=== PATIENT | female | born 1990 | race Caucasian/White ===

== ENCOUNTER 2022-12-21 12:11 | Emergency (ER) | payer SELFPAY ==
[2022-12-21 13:03] LABS: #Eosinphils 0.4 10x3/uL (0.0-0.5); #Monocytes 0.5 10x3/uL (0.0-1.1); #Neutrophils 4.4 10x3/uL (1.5-8.4); %Basophils 0.4 % (0.0-2.0); %Eosinophils 5.4 % (0.0-6.0); %Lymphocytes 24.8 % (18.0-47.0); %Monocytes 7.3 % (0.0-10.0); Hemoglobin 11.9 g/dL (12.0-15.5); Mean Corpuscular HGB CONC 32.5 g/dL (32.0-36.0); Mean Corpuscular Hemoglobin 28.5 pg (27.0-33.0); Mean Corpuscular Volume 87.8 fl (81.6-98.3); Mean Platelet Volume 10.7 fl (7.4-10.4); Platelet Count 271 10x3/uL (150-450); RBC Distribution Width 13.9 % (11.5-14.5); Red Blood Cell (RBC) Count 4.17 10x6/uL (3.90-5.03)
[2022-12-21 13:19] LABS: ALT (SGPT) 14 U/L (8-55); AST (SGOT) 14 U/L (5-34); Albumin 3.8 g/dL (3.5-5.0); Alkaline Phosphatase 62 U/L (40-110); Anion Gap 8 mmol/L (10-20); BUN (Urea Nitrogen) 9 mg/dL (7.0-18.7); Bilirubin, Total 0.5 mg/dL (0.2-1.2); Calc. Creatinine Clearance 0 mL/min (70-130); Carbon Dioxide 25 mmol/L (22-29); Chloride 109 mmol/L (98-107); Estimated GFR 108; Globulin 3.2 g/dL (2.4-3.5); Glucose 89 mg/dL (70-105); Potassium 4.3 mmol/L (3.5-5.1); Sodium 138 mmol/L (136-145)
== END 2022-12-21 15:23 | disposition home or self-care (01) ==
LOC: EDBD → CSHERS 12:11
DX: O20.9 Hemorrhage in early pregnancy, unspecified (principal); Z3A.08 8 weeks gestation of pregnancy
CPT/HCPCS: 36415; 76856; 80053; 84702; 85025; 86900; 86901

== ENCOUNTER 2022-12-23 09:34 | Emergency (ER) | payer SELFPAY | END 2022-12-23 12:00 | disposition home or self-care (01) | LOC: CSHERS 09:34 | DX: O02.81 Inappropriate change in quantitative human chorionic gonadotropin (hCG) in early pregnancy (principal); Z3A.00 Weeks of gestation of pregnancy not specified | CPT/HCPCS: 36415; 76856; 84702 ==

== ENCOUNTER 2023-07-02 16:35 | Day surgery (SDC) | payer SELFPAY ==
[2023-07-02] MEDS ORDERED: hydrALAZINE 20 MG/ML VIAL SLOW IVP PRN (17:04)
[2023-07-02 17:45] LABS: Bilirubin Neg (Negative); Blood, Urine 10 (Negative); Clarity Clear (Clear); Glucose, Urine (Dipstick) Normal (Negative); Ketone, Urine Negative (Negative); Leukocyte 25 (Negative); Nitrite Negative (Negative); Protein, Urine (Dipstick) Negative (Neg-Trace); Urobilinogen Normal mg/dL (Less than 2)
[2023-07-02] MEDS ORDERED: Lactated Ringer's 1,000 ML IV SCH (18:00)
[2023-07-02 18:06] LABS: Bacteria/HPF 2+ HPF (None Seen); CAUTI Indications for Culture Pregnancy; RBC/HPF 0-3 HPF (0-3); Squamous Epithelial 0-3 HPF (0-3)
[2023-07-02 18:08] LABS: Urine Culture Reflex Yes Yes
[2023-07-02 18:22] VITALS: BMI 33.3
[2023-07-02] MEDS ORDERED: fentaNYL 50 mcg/mL 1 mL Vial SLOW IVP SCH (18:45)
[2023-07-02] MEDS ORDERED: Nitrofurantoin Monohyd/M-Cryst 100 MG CAP PO SCH (21:00)
== END 2023-07-02 20:50 | disposition home or self-care (01) ==
LOC: CSHLD/OP 16:35
PROVIDERS: ATTEND Obstetrics & Gynecology
DX: O99.891 Other specified diseases and conditions complicating pregnancy (principal); O09.33 Supervision of pregnancy with insufficient antenatal care, third trimester; O09.43 Supervision of pregnancy with grand multiparity, third trimester; O99.820 Streptococcus B carrier state complicating pregnancy; R10.2 Pelvic and perineal pain; Z98.84 Bariatric surgery status; Z98.890 Other specified postprocedural states; Z3A.32 32 weeks gestation of pregnancy
CPT/HCPCS: 81001; 87086

== ENCOUNTER 2023-07-17 13:05 | Day surgery (SDC) | payer MEDICAID, SELFPAY ==
[2023-07-17 13:32] VITALS: BMI 33.2
[2023-07-17] MEDS ORDERED: Lactated Ringer's 1,000 ML IV SCH (14:30)
[2023-07-17 15:00] LABS: Bilirubin Neg (Negative); Blood, Urine Negative (Negative); Clarity Clear (Clear); Glucose, Urine (Dipstick) Normal (Negative); Ketone, Urine Negative (Negative); Leukocyte Negative (Negative); Nitrite Negative (Negative); Protein, Urine (Dipstick) Negative (Neg-Trace); Specific Gravity, Urine 1.015 (1.005-1.030); Urobilinogen Normal mg/dL (Less than 2)
== END 2023-07-17 18:35 | disposition home or self-care (01) ==
LOC: CSHLD/OP 13:05
PROVIDERS: ATTEND Obstetrics & Gynecology
DX: O23.43 Unspecified infection of urinary tract in pregnancy, third trimester (principal); N39.0 Urinary tract infection, site not specified; A74.9 Chlamydial infection, unspecified; O47.03 False labor before 37 completed weeks of gestation, third trimester; O34.211 Maternal care for low transverse scar from previous cesarean delivery; O98.013 Tuberculosis complicating pregnancy, third trimester; A15.0 Tuberculosis of lung; Z98.890 Other specified postprocedural states; Z98.84 Bariatric surgery status; Z79.899 Other long term (current) drug therapy; Z3A.34 34 weeks gestation of pregnancy
CPT/HCPCS: 81003; 87086; 87480; 87510; 87660; 96360; 96365; 99283

== ENCOUNTER 2023-08-10 11:43 | Inpatient (IN) | payer MEDICAID ==
[2023-08-10] MEDS ORDERED: Misoprostol 200 MCG TAB PR PRN (12:44)
[2023-08-10] MEDS ORDERED: Ondansetron PF 4 MG/2 ML Vial IVP PRN ×2 (12:44→18:36)
[2023-08-10] MEDS ORDERED: Promethazine HCl 25 MG/ML VIAL IM PRN (12:44)
[2023-08-10] MEDS ORDERED: Tranexamic Acid 1,000 MG/10 ML VIAL IVP PRN (12:44)
[2023-08-10] MEDS ORDERED: Ibuprofen 800 MG TAB PO PRN (12:44)
[2023-08-10] MEDS ORDERED: hydrALAZINE 20 MG/ML VIAL SLOW IVP PRN ×2 (12:44→18:36)
[2023-08-10] MEDS ORDERED: Methylergonovine 0.2 MG/ML VIAL IM PRN ×2 (12:44→18:36)
[2023-08-10] MEDS ORDERED: Lidocaine 1% (PF) 30 ML VIAL SC PRN (12:44)
[2023-08-10] MEDS ORDERED: Docusate 100 MG CAP PO PRN (12:44)
[2023-08-10] MEDS ORDERED: Acetaminophen 500 MG TAB PO PRN (12:44)
[2023-08-10] MEDS ORDERED: Diphenoxylate HCl/Atropine Tablet PO PRN (12:44)
[2023-08-10] MEDS ORDERED: fentaNYL 50 mcg/mL 1 mL Vial SLOW IVP PRN (12:44)
[2023-08-10] MEDS ORDERED: Carboprost 250 MCG/ML AMP IM PRN (12:44)
[2023-08-10] MEDS ORDERED: Oxytocin 30 units/NS 500 ML 500 ML IV SCH ×3 (12:45→18:45)
[2023-08-10] MEDS ORDERED: Misoprostol 100 MCG TAB VAG SCH (12:45)
[2023-08-10] MEDS ORDERED: Lactated Ringer's 1,000 ML IV SCH (12:45)
[2023-08-10 13:53] VITALS: BMI 35.2
[2023-08-10 14:35] LABS: Hematocrit 39.7 % (34.9-44.5); Hemoglobin 13.5 g/dL (12.0-15.5); Mean Corpuscular Hemoglobin 30.9 pg (27.0-33.0); Mean Corpuscular Volume 90.8 fl (81.6-98.3); Mean Platelet Volume 11.4 fl (7.4-10.4); Platelet Count 236 10x3/uL (150-450); RBC Distribution Width 13.8 % (11.5-14.5); Red Blood Cell (RBC) Count 4.37 10x6/uL (3.90-5.03); White Blood Cell (WBC) Count 10.3 10x3/uL (3.5-10.5)
[2023-08-10 15:02] LABS: HBSAg Index 0.23 S/CO (0-0.99); Hep B Surf Ag - L&D Non-Reactive S/CO (NonReactive)
[2023-08-10 15:34] LABS: Syphilis Antibody Nonreactive (Nonreactive); Syphilis Antibody Index 0.09 S/CO (<1.00 Non-Reactive)
[2023-08-10] MEDS: Misoprostol 200 MCG TAB VAG PRN (18:35)
[2023-08-10] MEDS: Oxytocin 30 units/NS 500 ML 500 ML IV SCH (18:35)
[2023-08-10] MEDS ORDERED: Boostrix 0.5 ML (Tdap) VIAL (>/=7 yrs of age) IM ONE (18:36)
[2023-08-10] MEDS ORDERED: Preparation H Ointment 28 GM TUBE PR PRN (18:36)
[2023-08-10] MEDS ORDERED: Milk Of Magnesia 30 ML UDCUP PO PRN (18:36)
[2023-08-10] MEDS ORDERED: Lanolin Ointment 7 GM TUBE TOP PRN (18:36)
[2023-08-10] MEDS ORDERED: Bisacodyl 10 MG SUPP PR PRN (18:36)
[2023-08-10] MEDS ORDERED: Acetaminophen 500 MG TAB PO SCH (19:00)
[2023-08-10] MEDS ORDERED: HYDROcodone/Acetaminophen 5/325 mg Tablet PO PRN (19:17)
[2023-08-10] MEDS ORDERED: Cyclobenzaprine 10 MG TAB PO PRN (19:17)
[2023-08-10] MEDS ORDERED: Ibuprofen 800 MG TAB PO SCH (22:00)
[2023-08-10] MEDS: Acetaminophen 500 MG TAB PO SCH (22:04)
[2023-08-10] MEDS: Docusate 100 MG CAP PO SCH (22:04)
[2023-08-11] MEDS: Acetaminophen 500 MG TAB PO SCH (02:13)
[2023-08-11 05:28] LABS: Hematocrit 31.6 % (34.9-44.5); Hemoglobin 10.4 g/dL (12.0-15.5)
[2023-08-11] MEDS: Prenatal Vitamin 1 TAB PO SCH (07:59)
[2023-08-11] MEDS: Ferrous Sulfate 325 MG TAB PO SCH (08:01)
[2023-08-11 20:59] VITALS: TEMP 98.4
[2023-08-11 21:00] VITALS: BP 124/68
== END 2023-08-11 22:50 | disposition home or self-care (01) | DRG 807 ==
LOC: CSHLD/OP 11:43 → CSHLD 12:40 → CSHPED 21:00
PROVIDERS: ADMIT Family Medicine; ATTEND Family Medicine
PROC: 10E0XZZ Delivery of Products of Conception, External Approach (ICD-10-PCS; principal; 2023-08-10)
PROC: 10907ZC Drainage of Amniotic Fluid, Therapeutic from Products of Conception, Via Natural or Artificial Opening (ICD-10-PCS; 2023-08-10)
DX: O36.8130 Decreased fetal movements, third trimester, not applicable or unspecified (principal); Z37.0 Single live birth; O76 Abnormality in fetal heart rate and rhythm complicating labor and delivery; Z3A.38 38 weeks gestation of pregnancy; O09.43 Supervision of pregnancy with grand multiparity, third trimester; Z90.49 Acquired absence of other specified parts of digestive tract; Z98.890 Other specified postprocedural states; Z79.899 Other long term (current) drug therapy
CPT/HCPCS: 36415; 85014; 85018; 85027; 86780; 86850; 86900; 86901; 87340; 99285; J2590

== ENCOUNTER 2024-04-21 11:57 | Emergency (ER) | payer MEDICAID | END 2024-04-21 13:41 | disposition home or self-care (01) | LOC: CSHERS 11:57 | DX: K08.89 Other specified disorders of teeth and supporting structures (principal); Z55.0 Illiteracy and low-level literacy | CPT/HCPCS: 99282 ==

== ENCOUNTER 2024-07-23 10:04 | Emergency (ER) | payer MEDICAID ==
[2024-07-23 11:00] LABS: #Basophils Less than 0.03 10x3/uL (0.0-0.2); #Monocytes 0.39 10x3/uL (0.0-1.1); #Neutrophils 4.34 10x3/uL (1.5-8.4); %Basophils 0.3 % (0.0-2.0); %Eosinophils 1.5 % (0.0-6.0); %Lymphocytes 25.4 % (18.0-47.0); %Neutrophils 66.5 % (40.0-75.0); Hematocrit 36.1 % (34.9-44.5); Hemoglobin 11.4 g/dL (12.0-15.5); Mean Corpuscular HGB CONC 31.6 g/dL (32.0-36.0); Mean Corpuscular Hemoglobin 26.8 pg (27.0-33.0); Mean Corpuscular Volume 84.7 fL (81.6-98.3); Mean Platelet Volume 10.7 fL (7.4-10.4); Platelet Count 235 10x3/uL (150-450); RBC Distribution Width 14.7 % (11.5-14.5); Red Blood Cell (RBC) Count 4.26 10x6/uL (3.90-5.03); White Blood Cell (WBC) Count 6.53 10x3/uL (3.5-10.5)
[2024-07-23 11:24] LABS: Alkaline Phosphatase 62 U/L (40-110); Anion Gap 11 mmol/L (10-20); BUN (Urea Nitrogen) 7 mg/dL (7.0-18.7); Bilirubin, Total 0.5 mg/dL (0.3-1.2); Calc. Creatinine Clearance 0 mL/min (70-130); Carbon Dioxide 21 mmol/L (22-29); Chloride 108 mmol/L (98-107); Estimated GFR 119; Globulin 4.2 g/dL (2.4-3.5); Glucose 82 mg/dL (70-105); Potassium 3.9 mmol/L (3.5-5.1); Protein, Total 8.2 g/dL (6.0-8.3); Sodium 136 mmol/L (136-145)
[2024-07-23 11:25] LABS: ALT (SGPT) 8 U/L (Less than 34); AST (SGOT) 49 U/L (11-34)
[2024-07-23 12:22] LABS: Bilirubin Neg (Negative); Blood, Urine Negative (Negative); Clarity Clear (Clear); Glucose, Urine (Dipstick) Normal (Negative); Ketone, Urine Negative (Negative); Leukocyte Negative (Negative); Nitrite Negative (Negative); Protein, Urine (Dipstick) Negative (Neg-Trace); Specific Gravity, Urine 1.005 (1.005-1.030); Urobilinogen Normal mg/dL (Less than 2); pH, Urine 6.5 (5.0-9.0)
[2024-07-23 12:34] LABS: Bacteria/HPF None Seen HPF (None Seen); CAUTI Indications for Culture Pregnancy; RBC/HPF None Seen HPF (0-3); Squamous Epithelial 0-3 HPF (0-3); WBC/HPF None Seen HPF (0-3)
[2024-07-23 12:36] LABS: Urine Culture Reflex Yes Yes
== END 2024-07-23 12:46 | disposition home or self-care (01) ==
LOC: CSHERS 10:04
DX: O26.851 Spotting complicating pregnancy, first trimester (principal); Z3A.01 Less than 8 weeks gestation of pregnancy
CPT/HCPCS: 36415; 76801; 80053; 81001; 84702; 85025; 86850; 86900; 86901; 87086

== ENCOUNTER 2025-02-15 10:13 | Inpatient (IN) | payer MEDICAID, OTHER ==
[2025-02-15] MEDS ORDERED: Diphenoxylate HCl/Atropine Tablet PO PRN ×2 (10:58)
[2025-02-15] MEDS ORDERED: Lidocaine 1% (PF) 30 ML VIAL SC PRN (10:58)
[2025-02-15] MEDS ORDERED: Carboprost 250 MCG/ML AMP IM PRN (10:58)
[2025-02-15] MEDS ORDERED: Tranexamic Acid 1,000 MG/10 ML VIAL IVP PRN (10:58)
[2025-02-15] MEDS ORDERED: Methylergonovine 0.2 MG/ML VIAL IM PRN (10:58)
[2025-02-15] MEDS ORDERED: hydrALAZINE 20 MG/ML VIAL SLOW IVP PRN ×2 (10:58→13:32)
[2025-02-15] MEDS ORDERED: Ibuprofen 800 MG TAB PO PRN (10:58)
[2025-02-15] MEDS ORDERED: Ondansetron PF 4 MG/2 ML Vial IVP PRN ×2 (10:58→13:32)
[2025-02-15] MEDS ORDERED: Oxytocin 30 units/NS 500 ML 500 ML IV SCH ×2 (11:00)
[2025-02-15 11:13] LABS: Hematocrit 32.0 % (34.9-44.5); Hemoglobin 9.6 g/dL (12.0-15.5); Mean Corpuscular Hemoglobin 23.8 pg (27.0-33.0); Mean Corpuscular Volume 79.4 fL (81.6-98.3); Platelet Count 231 10x3/uL (150-450); Red Blood Cell (RBC) Count 4.03 10x6/uL (3.90-5.03); White Blood Cell (WBC) Count 7.69 10x3/uL (3.5-10.5)
[2025-02-15 11:42] LABS: Syphilis Antibody Index 0.12 S/CO (<1.00 Non-Reactive)
[2025-02-15 11:45] LABS: Hep B Surf Ag - L&D Non-Reactive S/CO (NonReactive)
[2025-02-15] MEDS ORDERED: Lanolin Ointment 7 GM TUBE TOP PRN (13:32)
[2025-02-15] MEDS ORDERED: diphenhydrAMINE 25 MG CAP PO PRN (13:32)
[2025-02-15] MEDS ORDERED: Milk Of Magnesia 30 ML UDCUP PO PRN (13:32)
[2025-02-15] MEDS ORDERED: Preparation H Ointment 28 GM TUBE PR PRN (13:32)
[2025-02-15] MEDS ORDERED: Bisacodyl 10 MG SUPP PR PRN (13:32)
[2025-02-15] MEDS ORDERED: Ibuprofen 800 MG TAB PO SCH (14:00)
[2025-02-15] MEDS: Acetaminophen 500 MG TAB PO PRN (15:30)
[2025-02-15] MEDS: Benzocaine-Menthol 82.5 ML CAN TOP PRN (15:32)
[2025-02-15] MEDS: Ferrous Sulfate 325 MG TAB PO SCH (17:14)
[2025-02-16] MEDS: HYDROcodone/Acetaminophen 5/325 mg Tablet PO PRN (01:22)
[2025-02-16] MEDS: Lidocaine 1% (PF) 30 ML VIAL ONE (08:07)
[2025-02-16] MEDS: Carboprost 250 MCG/ML AMP ONE (08:07)
[2025-02-16] MEDS: Methylergonovine 0.2 MG/ML VIAL ONE (08:07)
[2025-02-16] MEDS: Boostrix 0.5 ML (Tdap) VIAL (>/=7 yrs of age) IM ONE (08:08)
[2025-02-16] MEDS: Oxytocin 30 units/NS 500 ML 500 ML ONE (08:08)
[2025-02-16] MEDS: Acetaminophen 500 MG TAB PO SCH (08:08)
[2025-02-16] MEDS: Tranexamic Acid 1,000 MG/10 ML VIAL ONE (08:08)
[2025-02-16 11:39] VITALS: BP 118/66; TEMP 98.2
== END 2025-02-16 14:50 | disposition home or self-care (01) | DRG 807 ==
LOC: CSHLD/OP 10:13 → CSHLD 10:45 → CSHPP 15:15
PROVIDERS: ADMIT Family Medicine; ATTEND Family Medicine
PROC: 10E0XZZ Delivery of Products of Conception, External Approach (ICD-10-PCS; principal; 2025-02-15)
PROC: 4A1HXCZ Monitoring of Products of Conception, Cardiac Rate, External Approach (ICD-10-PCS; 2025-02-15)
DX: O34.211 Maternal care for low transverse scar from previous cesarean delivery (principal); Z37.0 Single live birth; Z3A.39 39 weeks gestation of pregnancy; Z79.899 Other long term (current) drug therapy
CPT/HCPCS: 85027; 86780; 86850; 86900; 86901; 87340; 99285; J2210; J2590; J3490